=== PATIENT | female | born 1960 | race American Indian/Alaskan Native ===

== ENCOUNTER 2018-08-04 10:39 | Emergency (ER) | payer OTHER ==
[2018-08-04 10:52] VITALS: BP 148/80
--- NOTE | 2018-08-04 11:34 | Emergency Department Report ---
ED General Adult HPI - General Chief complaint: Dyspnea/Respdistress Stated complaint: (L) ARM PAIN Time Seen by Provider: 08/04/18 11:30 Source: patient Mode of arrival: Ambulatory Limitations: No Limitations - History of Present Illness Initial comments: Patient is 58-year-old female with history of hypertension. Patient presented to the ER complaining of left arm for one week. Patient denied any chest pain. Patient is also complaining of mild neck pain. Patient stated that she do a lot of lifting at work but denied any specific injury. Patient denied any fever or cough, nausea or vomiting. No weakness numbness or tingling sensation. No b owel or bladder incontinence. Severity scale (0 -10): 3 - Related Data Home Medications Medication Instructions Recorded Confirmed Last Taken Meloxicam 2 tab PO DAILY 12/14/14 12/14/14 12/11/14 Omeprazole 40 mg PO DAILY 12/14/14 12/14/14 12/04/14 Triamter/Hctz 37.5-25 mg 1 tab PO DAILY 12/14/14 12/14/14 12/04/14 Previous Rx's Medication Instructions Recorded Last Taken Type HYDROcodone/APAP 5-325 [Merrill 1 each PO QHS PRN #15 tablet 11/08/14 12/11/14 Rx 5/325] Naproxen Sodium [Naproxen Sodium 500 mg PO QDAY #30 tbmp.24hr 11/08/14 12/11/14 Rx Cr] Allergies Allergy/AdvReac Type Severity Reaction Status Date / Time No Known Allergies Allergy Verified 12/14/14 08:17 ED Review of Systems ROS: Stated complaint: (L) ARM PAIN Other details as noted in HPI Comment: All other systems reviewed and negative Constitutional: denies: chills, fever Respiratory: denies: cough, orthopnea, shortness of breath, SOB with exertion, SOB at rest, wheezing Cardiovascular: denies: chest pain, palpitations Gastrointestinal: denies: abdominal pain, nausea, vomiting, diarrhea, constipation, hematemesis, melena, hematochezia Musculoskeletal: denies: back pain Neurological: denies: headache, weakness, numbness, paresthesias, confusion ED Past Medical Hx - Past Medical History Previous Medical History?: Yes Hx Hypertension: Yes (takes meds intermittently) Hx GERD: Yes Hx Sickle Cell Disease: (TRAIT) Hx Arthritis: Yes - Surgical History Past Surgical History?: No - Social History Smoking Status: Never Smoker Substance Use Type: None - Medications Home Medications: Home Medications Medication Instructions Recorded Confirmed Last Taken Type HYDROcodone/APAP 5-325 [Merrill 1 each PO QHS PRN #15 tablet 11/08/14 12/14/14 12/11/14 Rx 5/325] Naproxen Sodium [Naproxen Sodium 500 mg PO QDAY #30 tbmp.24hr 11/08/14 12/14/14 12/11/14 Rx Cr] Meloxicam 2 tab PO DAILY 12/14/14 12/14/14 12/11/14 History Omeprazole 40 mg PO DAILY 12/14/14 12/14/14 12/04/14 History Triamter/Hctz 37.5-25 mg 1 tab PO DAILY 12/14/14 12/14/14 12/04/14 History ED Physical Exam - General Limitations: No Limitations General appearance: alert, in no apparent distress - Head Head exam: Present: atraumatic, normocephalic, normal inspection - Eye Eye exam: Present: normal appearance, PERRL - ENT ENT exam: Present: normal exam, normal orophraynx, mucous membranes moist - Neck Neck exam: Present: normal inspection, full ROM. Absent: tenderness, meningismus, lymphadenopathy, thyromegaly - Respiratory Respiratory exam: Present: normal lung sounds bilaterally. Absent: respiratory distress, wheezes, rales, rhonchi, chest wall tenderness, accessory muscle use, decreased breath sounds, prolonged expiratory - Cardiovascular Cardiovascular Exam: Present: regular rate, normal rhythm, normal heart sounds - GI/Abdominal GI/Abdominal exam: Present: soft, normal bowel sounds. Absent: distended, tenderness, guarding, rebound, rigid, organomegaly, mass, bruit, pulsatile mass - Extremities Exam Extremities exam: Present: normal inspection, full ROM, normal capillary refill. Absent: pedal edema, calf tenderness - Back Exam Back exam: Present: normal inspection, full ROM. Absent: tenderness, CVA tenderness (R), CVA tenderness (L), muscle spasm, paraspinal tenderness, vertebral tenderness - Neurological Exam Neurological exam: Present: alert, oriented X3, CN II-XII intact, normal gait, reflexes normal - Skin Skin exam: Present: warm, intact, normal color ED Course Vital Signs 08/04/18 10:49 Temperature 98.0 F Pulse Rate 99 H Respiratory 16 Rate Blood Pressure 148/80 O2 Sat by Pulse 98 Oximetry ED Medical Decision Making - Lab Data Result diagrams: 08/04/18 11:40 08/04/18 11:40 - EKG Data -: EKG Interpreted by Me EKG shows normal: sinus rhythm Rate: tachycardia - EKG Data Interpretation: no acute changes - Radiology Data Radiology results: report reviewed Chest x-ray is unremarkable. - Medical Decision Making Patient is 58-year-old female with history of hypertension. Patient presented to the ER complaining of left arm for one week. Patient denied any chest pain. Patient is also complaining of mild neck pain. Patient stated that she do a lot of lifting at work but denied any specific injury. Patient denied any fever or cough, nausea or vomiting. No weakness numbness or tingling sensation. No bowel or bladder incontinence. Patient EKG did not show any ST elevation or depression. Chest x-ray is negative for acute finding. Troponin is negative. Believe patient's symptoms is most likely musculoskeletal. I will start patient on Naprosyn and I advised the patient to follow-up with her primary care physician as scheduled. Critical care attestation.: If time is entered above; I have spent that time in minutes in the direct care of this critically ill patient, excluding procedure time. ED Disposition Clinical Impression: Left arm pain Disposition: DC-01 TO HOME OR SELFCARE Is pt being admited?: No Condition: Stable Instructions: Arthralgia (ED) Referrals: BALWINDER SONG [Primary Care Provider] - 3-5 Days
[2018-08-04 11:50] LABS: Basophils % (Auto) 0.8 % (0.0-1.8); Eosinophils % (Auto) 0.9 % (0.0-4.3); Hematocrit 41.2 % (30.3-42.9); Hemoglobin 13.8 gm/dl (10.1-14.3); Lymphocytes # (Auto) 1.8 K/mm3 (1.2-5.4); Lymphocytes % (Auto) 32.3 % (13.4-35.0); Mean Corpuscular HGB Conc 34 % (30-34); Mean Corpuscular Volume 80 fl (79-97); Monocytes # (Auto) 0.5 K/mm3 (0.0-0.8); Monocytes % (Auto) 8.7 % (0.0-7.3); Platelet Count 276 K/mm3 (140-440); Red Blood Count 5.14 M/mm3 (3.65-5.03); Red Cell Distribution Width 13.7 % (13.2-15.2)
--- NOTE | 2018-08-04 11:54 | XRay Report ---
ROUTINE CHEST, TWO VIEWS: HISTORY: Shortness of breath. The trachea, heart, mediastinal contour, lung emerson and bony thorax are unremarkable. IMPRESSION: Unremarkable chest x-ray.
[2018-08-04 12:12] LABS: BUN/Creatinine Ratio 13; Blood Urea Nitrogen 10 mg/dL (7-17); Calcium 9.1 mg/dL (8.4-10.2); Hemolysis Index 7
== END 2018-08-04 12:40 | disposition home or self-care (01) ==
LOC: ED 10:39
DX: M79.602 Pain in left arm (principal); I10 Essential (primary) hypertension; K21.9 Gastro-esophageal reflux disease without esophagitis; M19.90 Unspecified osteoarthritis, unspecified site
CPT/HCPCS: 36415; 71046; 80048; 84484; 84703; 85025; 93005; 93010; 99284